=== PATIENT | female | born 1990 | race Caucasian/White ===

== ENCOUNTER 2016-10-19 17:59 | Emergency (ER) | payer MEDICAID, OTHER ==
[~2016-10-19 17:59] MED LIST: COLACE100 MG PO; IRON325 M1 PO; MOTRIN-DPS800 MG PO; PERCOCET 5 DPS1 TAB PO; PRENATABS RX T1 EACH PO; [UNRECOGNIZED DRUG - REMARK] TP
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
== END 2016-10-19 19:20 | disposition home or self-care (01) ==
LOC: ER 17:59
DX: O9A.211 Injury, poisoning and certain other consequences of external causes complicating pregnancy, first trimester (principal); S00.83XA Contusion of other part of head, initial encounter; S80.01XA Contusion of right knee, initial encounter; Z3A.01 Less than 8 weeks gestation of pregnancy; V49.50XA Passenger injured in collision with unspecified motor vehicles in traffic accident, initial encounter

== ENCOUNTER 2016-11-21 19:02 | Emergency (ER) | payer MEDICAID ==
--- NOTE | 2016-11-28 07:41 | ER ---
ADMIT: 11/21/2016 RM/LOC: ER [facility] MR#: [id number] [facility] [address] [place], [place] [address] REBEKAH TORRESGREGORYFelicitas Trevino [address] [place] [address] Emergency Room Report SEX: F AGE: 26 : 1990 DATE: 11/21/2016 TIME: 1902 hours. Please refer to my T-sheet for complete H and P. Briefly, the patient is a 26-year-old, who developed sore throat yesterday. She was actually seen in the clinic today, had a strep and a mono, it was negative. She was placed on Keflex. She is 12 weeks . She says it is just not improving. She is having fevers up to 102 to 103. She is able to drink. No vomiting, no diarrhea. No pain or burning with urination. PHYSICAL EXAMINATION: VITAL SIGNS: Blood pressure 107/60, pulse 120, respirations 16, temp 101.1, and sat 99%. GENERAL: No acute distress. HEENT: Atraumatic. Pupils are equal, round, and reactive to light. TMs clear. Nose, mild rhinorrhea. Throat, exudative tonsillitis, bilateral with no abscess. Uvula is midline. Erythema of the pharyngeal area is noted. NECK: Soft, supple. Anterior bilateral cervical adenopathy is noted. No posterior cervical nodes. LUNGS: Clear. ABDOMEN: Soft. NEUROLOGIC: Alert and oriented, nonfocal. EMERGENCY DEPARTMENT COURSE: Uneventful. I had a long discussion. She was ready for discharge. ASSESSMENT: Acute pharyngitis and . PLAN: Continue the Keflex, fluids. Return if worse. Tylenol and may use Motrin as she is just first-trimester. Follow up with Dr. Lundberg. Butch Sparks MD/ jeanna JOB #: [id number] CC: Butch Sparks MD, Attending Physician
== END 2016-11-21 20:13 | disposition home or self-care (01) ==
LOC: ER 19:02
DX: O99.511 Diseases of the respiratory system complicating pregnancy, first trimester (principal); J02.9 Acute pharyngitis, unspecified; Z3A.12 12 weeks gestation of pregnancy